=== PATIENT | male | born 1970 | race Caucasian/White ===

== ENCOUNTER 2018-11-22 21:00 | Emergency (ER) | payer SELFPAY ==
[2018-11-22] MEDS ORDERED: Ketorolac 30 MG/ML SDV IM ONE (22:01)
[2018-11-22] MEDS ORDERED: Orphenadrine 100 MG Tab.ER PO ONE (22:02)
--- NOTE | 2018-11-22 22:06 | EDM.PDOC ---
ED HPI GENERAL MEDICAL PROBLEM - General Chief Complaint: Upper Extremity Injury/Pain Stated Complaint: CHEST PAIN Time Seen by Provider: 11/22/18 21:24 Source of Information: Reports: Patient, RN Notes Reviewed History Limitations: Reports: No Limitations - History of Present Illness INITIAL COMMENTS - FREE TEXT/NARRATIVE: Patient presents to the ED for the evaluation of left neck, shoulder and arm pain. He states that around 1 month ago he had kind of a slipped on the ice he did not fall this time but was shamar. He states since then he has had multiple little slipped on the ice and has re-aggravated this injury. He did note that this has worsened over the last 2 days. He is now complaining mostly of a stiff neck on the left side with some shooting-type sharp pains in the left shoulder and down the left arm. He states that the pain is almost there all the time and nothing really makes this better or worse. He has been using Advil for pain relief. He has not been using ice or heat packs, has not seen a chiropractor nor tried massage for further relief. He states he does not have a primary care provider. He denies any chest pain or upper back pain. His pain is in his left neck, left shoulder, left arm. Left Shoulder Pain Score (Numeric/FACES): 8 - Related Data Allergies Allergy/AdvReac Type Severity Reaction Status Date / Time No Known Allergies Allergy Verified 11/22/18 21:14 Home Meds: Home Meds Lisinopril 40 mg PO DAILY 11/22/18 [History] Orphenadrine [Norflex] 100 mg PO BID PRN #20 tab 11/22/18 [Rx] Past Medical History Cardiovascular History: Reports: Hypertension Social & Family History - Tobacco Use Smoking Status *Q: Never Smoker - Caffeine Use Caffeine Use: Reports: Coffee - Recreational Drug Use Recreational Drug Use: No Review of Systems - Review of Systems Review Of Systems: See Below Constitutional: Reports: No Symptoms Eyes: Reports: No Symptoms Ears: Reports: No Symptoms Nose: Reports: No Symptoms Mouth/Throat: Reports: No Symptoms Respiratory: Reports: No Symptoms Cardiovascular: Reports: No Symptoms GI/Abdominal: Reports: No Symptoms Genitourinary: Reports: No Symptoms Musculoskeletal: Reports: Neck Pain (Left-sided), Shoulder Pain (Left), Arm Pain (Left) Skin: Reports: No Symptoms Neurological: Denies: Numbness, Paresthesia, Tingling, Weakness Psychiatric: Reports: No Symptoms ED EXAM, GENERAL - Physical Exam Exam: See Below Exam Limited By: No Limitations General Appearance: Alert, WD/WN, No Apparent Distress Eye Exam: Bilateral Eye: EOMI, Normal Inspection Ears: Normal External Exam, Normal Canal, Hearing Grossly Normal, Normal TMs Nose: Normal Inspection Throat/Mouth: Normal Inspection, Normal Lips, Normal Teeth, Normal Gums, Normal Oropharynx, Normal Voice, No Airway Compromise Head: Atraumatic, Normocephalic Neck: Normal Inspection, Supple, Non-Tender, Full Range of Motion (Full range of motion but is painful on upward gaze and lateral movement to the right) Respiratory/Chest: No Respiratory Distress, Lungs Clear, Normal Breath Sounds, No Accessory Muscle Use, Chest Non-Tender Cardiovascular: Normal Peripheral Pulses, Regular Rate, Rhythm, No Murmur Back Exam: Normal Inspection, Full Range of Motion Extremities: Normal Inspection, Normal Range of Motion, Non-Tender, No Pedal Edema, Normal Capillary Refill Neurological: Alert, Oriented, Normal Cognition, Normal Gait, Normal Reflexes, No Motor/Sensory Deficits Psychiatric: Normal Affect, Normal Mood Skin Exam: Warm, Dry, Intact, Normal Color, No Rash EKG INTERPRETATION EKG Date: 11/22/18 Time: 21:13 Rhythm: NSR Rate (Beats/Min): 86 [place]: Normal P-Wave: Present QRS: Normal ST-T: Normal QT: Normal Comparison: NA - No Prior EKG EKG Interpretation Comments: Reviewed by myself and Dr. Aguila, no acute changes noted. Course - Vital Signs Last Recorded V/S: Last Vital Signs Temp 98.8 F 11/22/18 21:08 Pulse 94 11/22/18 21:08 Resp 20 11/22/18 21:08 BP 165/108 H 11/22/18 21:08 Pulse Ox 98 11/22/18 21:08 - Orders/Labs/Meds Orders: Active Orders 24 hr Category Date Time Status EKG 12 Lead [EKG Documentation Completion] [RC] STAT Care 11/22/18 21:33 Active Meds: Medications Discontinued Medications Generic Name Dose Route Start Last Admin Trade Name Freq PRN Reason Stop Dose Admin Ketorolac Tromethamine 30 mg 11/22/18 22:01 11/22/18 22:09 Toradol IM 11/22/18 22:02 30 mg ONETIME ONE Administration Orphenadrine Citrate 100 mg 11/22/18 22:02 11/22/18 22:09 Norflex PO 11/22/18 22:03 100 mg ONETIME ONE Administration - Re-Assessments/Exams Free Text/Narrative Re-Assessment/Exam: 11/22/18 22:08 Patient presents to the ED for left neck, shoulder, arm pain. It is likely that his pain is due to to strain from multiple slips on the ice. Have ordered 30 mg IM Toradol for pain relief and will send the patient home with a tab of Norflex. Will give the patient a prescription for Norflex to use at nighttime for further muscle spasm relief. I did recommend that he seek chiropractic treatment to see if this doesn't help some of his pain, or massage therapy. Departure - Departure Time of Disposition: 22:09 Disposition: Home, Self-Care 01 Condition: Fair Clinical Impression: Stiff neck Left shoulder pain Qualifiers: Chronicity: acute Qualified Code(s): M25.512 - Pain in left shoulder - Discharge Information *PRESCRIPTION DRUG MONITORING PROGRAM REVIEWED*: No *COPY OF PRESCRIPTION DRUG MONITORING REPORT IN PATIENT KELLY: No Prescriptions: Orphenadrine [Norflex] 100 mg PO BID PRN #20 tab PRN Reason: Spasms Instructions: Neck Exercises, Musculoskeletal Pain Referrals: PCP,None [Primary Care Provider] - Forms: ED Department Discharge Additional Instructions: You have been evaluated in the ED for your left neck/shoulder/arm pain. Your EKG did not demonstrate any acute ischemic changes in your heart. You are not having a heart attack at this ED visit. Please use ice/heat as tolerated to the affected area. You may take tylenol 500 mg or ibuprofen 600mg q6 hrs for pain relief. Please do so until you have a tolerable level of pain with activity. Do not exceed 4000mg tylenol, Do not exceed 3200mg ibuprofen in a 24 hour time period. Please take the Norflex (muscle relaxer) one tab by mouth at night. Do not drive if you are taking this medication during the day. This medication has been electronically prescribed to the [place] [facility] located in the [facility]. Massage therapy or chiropractic treatments may help relieve some of your pain recommend that you seek either massage therapy or chiropractor. Further recommend that you set up care with a primary care provider. Please call [phone] and schedule with a family practice provider of your choosing. Recommend that you follow up in one week to 10 days to make sure that your pain is resolving. Please return to ED if your symptoms should change or worsen. - My Orders Last 24 Hours: My Active Orders 11/22/18 21:33 EKG 12 Lead [EKG Documentation Completion] [RC] STAT - Assessment/Plan Last 24 Hours: My Active Orders 11/22/18 21:33 EKG 12 Lead [EKG Documentation Completion] [RC] STAT
== END 2018-11-22 22:30 | disposition home or self-care (01) ==
LOC: JD.ED 21:00
DX: M43.6 Torticollis (principal); M25.512 Pain in left shoulder; I10 Essential (primary) hypertension; Z79.899 Other long term (current) drug therapy
CPT/HCPCS: 93005; 96372; 99284; A9270; J1885; 93010; 99283